=== PATIENT | female | born 1945 | race Caucasian/White ===

== ENCOUNTER 2019-02-17 08:21 | Inpatient (IN) | payer OTHER ==
[~2019-02-17] VITALS: Ht 165.1 cm; Wt 120.3 kg
[2019-02-17] MEDS ORDERED: KETOROLAC 15 MG/ML VIAL. IVP ONE (08:30)
--- NOTE | 2019-02-17 08:34 | PHYS DOC ---
Adult General Chief Complaint Chief Complaint: BACK PAIN - NO INJURY [facility] HPI Patient is a 73-year-old female who presents with complaint of left-sided lower back pain that radiates down her posterior left thigh that started yesterday at around noon. Patient rates her pain currently at a 9 out of 10. She denies any loss of bowel or bladder control but states that she is having a hard time holding her urine right now because she can't get up to go to the bathroom. She states that she has had no fever. She denies any chest pain or shortness of breath. She denies any abdominal pain, nausea or vomiting. Patient states that pain is worsened if she tries to move. She states that she has had similar episodes in the past due to sciatica and states that her last episode was about a year ago. Patient denies any recent injuries.[] Review of Systems Review of Systems Constitutional: Denies fever or chills [] Respiratory: Denies cough or shortness of breath [] Cardiovascular: No additional information not addressed in HPI [] Musculoskeletal: Complains of lower back pain [] Integument: Denies rash or skin lesions [] Neurologic: Denies headache, focal weakness or sensory changes [] Physical Exam Physical Exam Constitutional: Well developed, well nourished, no acute distress, non-toxic appearance. [] Neck: Normal range of motion, no tenderness, supple. [] Cardiovascular: Regular rate and rhythm[] Lungs & Thorax: Bilateral breath sounds clear to auscultation [] Skin: Warm, dry, no erythema, no rash. [] Back: There is tenderness to palpation in the lower lumbar paraspinal musculature on the left as well as in the left buttock. [] Extremities: No tenderness, no cyanosis, no clubbing, ROM intact. [] Neurologic: Alert and oriented X 3, no focal deficits noted. [] EKG EKG [] Radiology/Procedures Radiology/Procedures [] Course & Med Decision Making Course & Med Decision Making Pertinent Labs and Imaging studies reviewed. (See chart for details) Patient moved to room upon arrival and was evaluated by emergency rooms staff. Patient was given IV doses of fentanyl, Norflex, Decadron and Toradol. Patient was reevaluated at 9:30 AM and does report significant improvement in symptoms. Patient will be discharged home with prescriptions for further management of pain. Patient had been scheduled to return flight to [facility] today. Patient has required rescheduling a flight. For return flight, it would be medically recommended more comfortable seeding with ability to recline due to extended length of flight. Dragon Disclaimer Dragon Disclaimer This electronic medical record was generated, in whole or in part, using a voice recognition dictation system. Departure Departure: Impression: Primary Impression: Intractable low back pain Additional Impression: Sciatica Disposition: ADMITTED INPATIENT Admitting Physician: Leon Funez Condition: IMPROVED Referrals: PCP,NO (PCP) Problem Qualifiers Additional Impression: Sciatica Laterality: left Qualified Codes: M54.32 - Sciatica, left side CARLY GRIFFIN Jr. DO Feb 17, 2019 08:34
[2019-02-17] MEDS ORDERED: DEXAMETHASONE SOD PHOS 10 MG/ML VIAL IV ONE (08:45)
[2019-02-17] MEDS ORDERED: ORPHENADRINE CITRATE 60 MG/2 ML VIAL. IV ONE (08:45)
[2019-02-17] MEDS ORDERED: ONDANSETRON PF 4 MG/2 ML VIAL. IV PRN (10:00)
--- NOTE | 2019-02-17 10:42 | RAD ---
CT LUMBAR SPINE WO CONTRAST Indication: Intractable low back pain Exposure: One or more of the following individualized dose reduction techniques were utilized for this examination: 1. Automated exposure control 2. Adjustment of the mA and/or kV according to patient size 3. Use of iterative reconstruction technique. Technique: Standard imaging without intravenous contrast. Vertebral body height is intact. No evidence of acute fracture or aggressive bone destruction. No significant spondylolisthesis. Degenerative facet joint disease and mild degenerative spondylosis. Ligamentum flavum hypertrophy greatest at L3-L4 and L4-L5. Mild spinal canal narrowing at these levels. There appears to be some posterior disc protrusion or herniation at L5-S1, greater on the left which may be posteriorly displacing the left S1 nerve. There is also neural foraminal narrowing at the lower spine. Degenerative changes at the SI joint. Partially seen right hip replacement. No evidence of calculus or hydronephrosis in the visualized kidneys. Visualized aortoiliac structures are calcified and ectatic, without aneurysm. Low-density lesion in the right liver, measuring 18 mm diameter and 8 Hounsfield units, probably a cyst. Partially visualized tubing is seen in the pelvis. Partially visualized liver is enlarged. IMPRESSION: Degenerative lumbar spondylosis with stenosis. Disc protrusion at the lower levels, with suspected left S1 nerve impingement and displacement. Electronically signed by: Roly Shepherd MD (02/17/2019 10:39 AM) [facility]
[2019-02-17 11:13] VITALS: BP 143/76
--- NOTE | 2019-02-17 12:09 | NUR ---
The patient, VAN FOWLER, 73 y/o, F admitted by AKSHAT CERON MD, was given written information regarding hospital policies, unit procedures and contact persons. Valuables were checked and left with daughter Ana at bedside. Patient is alert and oriented x 4, speech is clear, primary language is Maya, able to speak liberian but has a hard time understanding Lithuanian. Daughter does interpret at times. Patient is full code, admitted for intractable back pain. Patient lungs are CTA, respirations are equal and unlabored, no cough or SOA observed, RA 02. Abdomen is obese,soft and non tender,active bowel sounds in all 4 quadrants. Continent of bowel and bladder, last BM 02-16-19. Patient currently has a boswell catheter in place due to patient unable to move from bed and retains urine. Clear yellow urine draining in bag, catheter placed in ED on 02-17-18. Skin is intact, normal for age and ethnicity. Left lower extremity is positive for jazz's sign, right lower extremity negative for Jazz's sign. HRR S1S2 auscultated with regular rhythm. Patient is a on ADA diet. Patient rates back pain on a scale of 1-10 a 6, refuse to elevate HOB above 15 degrees due to causing back spasms. Patient is resting in bed eating lunch with daughter at bedside.
[2019-02-17] MEDS ORDERED: [UNRECOGNIZED DRUG - MIXTURE] PO (12:38)
[2019-02-17] MEDS ORDERED: METF1000 PO (12:38)
[2019-02-17] MEDS ORDERED: LEVO50TA78 PO (12:38)
[2019-02-17] MEDS ORDERED: [UNRECOGNIZED DRUG - OTHER] (12:38)
[2019-02-17] MEDS ORDERED: [UNRECOGNIZED DRUG - OTHER] PO (12:38)
[2019-02-17] MEDS ORDERED: [UNRECOGNIZED DRUG - OTHER] (12:38)
[2019-02-17] MEDS ORDERED: [UNRECOGNIZED DRUG - OTHER] PO (12:38)
[2019-02-17] MEDS ORDERED: [UNRECOGNIZED DRUG - OTHER] PO (12:38)
[2019-02-17] MEDS ORDERED: CANA100T PO (12:38)
[2019-02-17] MEDS ORDERED: [UNRECOGNIZED DRUG - OTHER] PO (12:38)
[2019-02-17] MEDS ORDERED: MULT-245 PO (12:38)
[2019-02-17] MEDS ORDERED: ACEB200C PO (12:38)
[2019-02-17 13:03] LABS: BASO # 0.1 x10^3/uL (0.0-0.2); BASO % 1 % (0-3); EOS % 0 % (0-3); HEMATOCRIT 47.5 % (36.0-47.0); HEMOGLOBIN 15.8 g/dL (12.0-15.5); LYMPH # 0.7 x10^3/uL (1.0-4.8); LYMPH % 9 % (24-48); MEAN CORPUSCULAR HEMOGLOBIN 31 pg (25-35); MEAN CORPUSCULAR HGB CONC 33 g/dL (31-37); MEAN CORPUSCULAR VOLUME 92 fL (79-100); MONO # 0.1 x10^3/uL (0.0-1.1); MONO % 1 % (0-9); NEUT # 6.9 x10^3uL (1.8-7.7); NEUT % 89 % (31-73); PLATELET COUNT 153 x10^3/uL (140-400); RED BLOOD COUNT 5.15 x10^6/uL (3.50-5.40); RED CELL DISTRIBUTION WIDTH 14.2 % (11.5-14.5); WHITE BLOOD COUNT 7.7 x10^3/uL (4.0-11.0)
[2019-02-17 13:10] LABS: CALCIUM 9.2 mg/dL (8.5-10.1); CREATININE 0.8 mg/dL (0.6-1.0); GFR 70.7; POTASSIUM 3.6 mmol/L (3.5-5.1)
[2019-02-17] MEDS ORDERED: IBUPROFEN 600 MG TABLET. PO PRN (14:30)
[2019-02-17] MEDS ORDERED: predniSONE 20 MG TABLET PO ONE (14:45)
[2019-02-17 14:54] VITALS: BP 146/73
--- NOTE | 2019-02-17 16:55 | HP ---
ADMIT DATE: 02/17/2019 HISTORY OF PRESENT ILLNESS: The patient is a 73-year-old female patient, visiting her daughter from [place] who presented with a complaint of left-sided lower back pain that radiates down to her posterior left thigh and started yesterday around noon. The patient rates her pain now currently at 9/10 on arrival to the Emergency Room. Denied any loss of bowel or bladder control, but stated that she is having a hard time holding her urine right now because she cannot get up to go to the bathroom. She stated that she has no fever. Denied any chest pain or shortness of breath. Denied any abdominal pain, nausea, or vomiting. Stated the pain is worsened if she tries to move. She had had similar episode in the past due to sciatica and stated that her episode was about a year ago. The patient denies any recent fall or trauma. She was extensively investigated in the Emergency Room. Her lab works are unremarkable and has had a CT scan of the lumbar spine, which basically showed that the vertebral body heights are intact. No evidence of acute fracture or aggressive bone destruction, no significant spondylolisthesis. She has degenerative facet joint disease and mild degenerative spondylosis, ligamentum flavum hypertrophy, greatest at L3-L4 and L4-L5, mild spinal canal narrowing at these levels. There appears to be some posterior disk protrusion or herniation at L5-S1, greater on the left, for which may be posteriorly displacing the left S1 nerve. There is also neural foramina narrowing at the lower spine, degenerative changes at S1 joint, partially seen right hip replacement. No evidence of calculus or hydronephrosis in the visualized kidneys. The visualized aorta and iliac structures calcified and ectatic without aneurysm, low-density lesion in the right liver, measuring 18 mm in diameter and 8 Hounsfield units, probably a cyst, partially visualized. Tubing is seen in the pelvis, partially visualized liver is enlarged with the impression is that the patient has degenerative lumbar spondylosis with stenosis, disk protrusion at the lower level with suspected left S1 nerve impingement and displacement. The patient was treated with Toradol, fentanyl, as well as dexamethasone and orphenadrine and was admitted for further pain management and to start the process of physical and occupational therapy. PAST MEDICAL HISTORY: Significant for type 2 diabetes mellitus, hypertension, hypothyroidism, hyperlipidemia, and generalized osteoarthritis. 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 PAST SURGICAL HISTORY: Significant for right total hip arthroplasty, tonsillectomy, and appendectomy. ALLERGIES: She is allergic to HAZELNUT, NOVOCAIN, and CLINDAMYCIN. MEDICATIONS: She is currently on following medications: She is on acebutolol 100 mg once a day, metformin 1000 mg once a day, Invokana 100 mg tablet once a day, levothyroxine sodium 50 mcg once a day, multivitamin 1 tablet once a day, Detralex 200 mg once a day for chronic venous, Kalium Chloratum, Lercanidipine 10 mg twice a day, nimesulide once a day, Prestarium Combi 100 mg daily. FAMILY HISTORY: She has 3 brothers, all . One at age of 4 because of diphtheria, two because of renal cell carcinoma. Her father at age of 64 because of myocardial infarction. Mother at age of 55 because of leukemia. SOCIAL HISTORY: She lives alone. She has 2 daughters, one lives in another state, the other one works for the [employer]. She has never smoked, does not drink alcohol or use any recreational drugs. She works as a psychotherapist. REVIEW OF SYSTEMS: As per history of present illness. PHYSICAL EXAMINATION: GENERAL: On arrival to the Emergency Room, the patient looked well and was clearly in no apparent respiratory distress. No pallor, jaundice, cyanosis, or thyromegaly. No jugular venous distention. No limb edema. VITAL SIGNS: Her heart rate was 65, blood pressure 150/75, temperature was 98, respiratory rate was 16, and oxygen saturation was 98%. HEAD, EYES, EARS, NOSE, AND THROAT: Normocephalic, atraumatic. NECK: Supple. HEART: Showed normal first and second heart sounds. No gallop or murmur. CHEST: Clear to auscultation. No crepitation or rhonchi. ABDOMEN: Distended, soft, nontender. No guarding or rigidity. No organomegaly. All hernial orifice intact. Bowel sounds normal. NEUROLOGIC: She is awake, alert, responding appropriately. All cranial nerves intact. She moves her extremities without difficulty. Apparently, when she arrived to the Emergency Room, she was unable to move and required placement of an indwelling Renee catheter. LABORATORY DATA: Her lab work showed a serum sodium 137, potassium 3.6, chloride 100, bicarbonate 27, anion gap of 10, BUN 18, creatinine 0.8, estimated GFR was 70 mL per minute. Her glucose 197, calcium was 9.2. White cell count was 7700, hemoglobin 16, hematocrit 48, MCV 92, and platelet count of 153,000. The lumbar spine CT showed that the patient has degenerative lumbar spondylosis with stenosis, disk protrusion at the lower level with suspected left S1 nerve impingement and displacement. PLAN: Plan is to continue with pain management. Continue with steroids as well as the anti-inflammatory medication, muscle relaxant, and pain medication. AKSHAT CERON MD DR: CORBY/bishop JOB#: [id number] / [id number]
[2019-02-17 19:35] VITALS: BP 155/77
[2019-02-17] MEDS: BACLOFEN 10 MG TABLET PO SCH (20:42)
[2019-02-17 22:54] VITALS: BP 140/70
[2019-02-18] MEDS: LEVOTHYROXINE 50 MCG TABLET PO SCH ×2 (05:44→07:56)
[2019-02-18 06:07] VITALS: BP 149/74
[2019-02-18 07:31] LABS: CALCIUM 8.8 mg/dL (8.5-10.1); CREATININE 0.8 mg/dL (0.6-1.0); GFR 70.7
[2019-02-18] MEDS: metFORMIN 500 MG TABLET PO SCH (07:55)
[2019-02-18] MEDS: BACLOFEN 10 MG TABLET PO SCH ×3 (07:56→21:38)
[2019-02-18] MEDS: MULTIVITAMIN with MINERAL TABLET. PO SCH (07:56)
[2019-02-18 08:05] LABS: POTASSIUM 3.5 mmol/L (3.5-5.1)
[2019-02-18] MEDS ORDERED: NON FORMULARY ITEM (Canagliflozin (Invokana) 1 TAB) PO SCH (09:00)
[2019-02-18 11:02] VITALS: BP 124/75
[2019-02-18 14:59] VITALS: BP 126/72
[2019-02-18] MEDS ORDERED: METO25TA4 PO (17:08)
[2019-02-18] MEDS ORDERED: LEVO50TA5 PO (17:08)
[2019-02-18] MEDS ORDERED: LISI10TA2 PO (17:08)
[2019-02-18] MEDS ORDERED: POTA20TA4 PO (17:08)
[2019-02-18] MEDS ORDERED: predniSONE 10 MG TABLET PO ONE (17:30)
[2019-02-18 19:37] VITALS: BP 164/93
[2019-02-18] MEDS: METOPROLOL TART IMMED RELEASE 25 MG TABLET PO SCH (21:00)
[2019-02-18 22:18] VITALS: BP 168/93
--- NOTE | 2019-02-18 23:21 | PN ---
DATE: 02/18/2019 SUBJECTIVE: The patient is sitting in her chair, eating her dinner comfortably, in no apparent distress. Unfortunately, now she cannot lie, although she is able to stand and walk. She is planning to fly back home to [facility], but she continued to have severe pain. PHYSICAL EXAMINATION: GENERAL: When I saw her this afternoon, she looked well and was clearly in no apparent respiratory distress. VITAL SIGNS: Her heart rate was 56, blood pressure 126/72, temperature 97.7, respiratory rate 20, and oxygen saturation was 94%. The rest of clinical exam is stable. Her intake and output are incompletely recorded. LABORATORY DATA: Her lab work this morning showed a serum sodium of 139, potassium 3.5, chloride 102, bicarbonate 28, anion gap of 9, BUN 23, creatinine 0.8. Her white cell count was 7700, hemoglobin 16, hematocrit 48, MCV 92, and platelet count of 153,000. ASSESSMENT: This is a 73-year-old female patient, visiting from [facility], who came with left-sided lower back pain. CT scan showed that she has degenerative lumbar spondylosis with stenosis, disk protrusion at the lower level with suspected left S1 nerve impingement and displacement consistent with her symptoms. PLAN: My plan is to continue with pain medication. Continue with nonsteroidal anti-inflammatory medication. Continue with baclofen, ibuprofen as well as steroids and I will evaluate her again tomorrow to see whether she is able to negotiate stairs and hopefully she can be discharged to fly back to [facility] in the near future. AKSHAT CERON MD DR: CORBY/bishop JOB#: [id number] / [id number]
[2019-02-19 05:19] VITALS: BP 148/69
[2019-02-19] MEDS: LEVOTHYROXINE 50 MCG TABLET PO SCH (06:08)
[2019-02-19] MEDS: MULTIVITAMIN with MINERAL TABLET. PO SCH (08:25)
[2019-02-19] MEDS: METOPROLOL TART IMMED RELEASE 25 MG TABLET PO SCH ×2 (08:26→21:00)
[2019-02-19] MEDS: metFORMIN 500 MG TABLET PO SCH (08:26)
[2019-02-19] MEDS: BACLOFEN 10 MG TABLET PO SCH ×3 (08:26→21:39)
[2019-02-19] MEDS ORDERED: POTASSIUM CHLORIDE 20 MEQ TABLET.ER. PO SCH (09:00)
[2019-02-19] MEDS ORDERED: LISINOPRIL 10 MG TABLET PO SCH (09:00)
[2019-02-19 10:47] VITALS: BP 154/76
--- NOTE | 2019-02-19 13:34 | NUR ---
NURSING NOTES: PATIENT IS ALERT AND ORIENTED. SPEECH IS CLEAR, NO C/O PAIN NOTED THUS FAR THIS SHIFT. NO SOA OR COUGH NOTED. NO C/O GI SX. DR. CERON HERE TO SEE PATIENT TODAY. PLAN IS FOR PATIENT TO DISCHARGE TOMORROW MORNING TO MAKE FLIGHT BACK HOME TO [facility].
[2019-02-19 14:51] VITALS: BP 117/67
--- NOTE | 2019-02-19 16:42 | PN ---
DATE: 02/19/2019 SUBJECTIVE: The patient is sitting on the edge of the bed comfortably in no apparent distress. The pain has been slightly better controlled. She is now able to stand and lie in bed, has been walking with a walker multiple times and the plan is for her to stay overnight here again and to depart from the hospital straight to the airport as they has a flight to go back to [facility] around 10:00 tomorrow. PHYSICAL EXAMINATION: GENERAL: When I examined her, she looked well and was clearly in no apparent respiratory distress. No pallor, jaundice, cyanosis or thyromegaly. No jugular venous distention. No limb edema. VITAL SIGNS: Her heart rate was 72, blood pressure 154/76, temperature 97.5, respiratory rate 20, and oxygen saturation was 94%. HEAD, EYES, EARS, NOSE AND THROAT: Normocephalic, atraumatic. NECK: Supple. CARDIAC: Normal first and second heart sounds. No gallop or murmur. CHEST: Clear to auscultation. No crepitation or rhonchi. ABDOMEN: Distended, soft, nontender. NEUROLOGIC: She is definitely awake, alert, responding appropriately. All cranial nerves are intact. She ambulates with a walker. Her intake was 3390, output was 2900. LABORATORY DATA: As of yesterday showed a serum sodium 139, potassium 3.5, chloride 102, bicarbonate 28, anion gap of 9, BUN 23, creatinine 0.8, estimated GFR was 70 mL per minute, glucose 162, calcium was 8.8. Her white cell count was 7500, hemoglobin 16, hematocrit 48, MCV 92, and platelet count 253,000. ASSESSMENT: 1. Severe left-sided back pain radiating to the left leg caused by left S1 nerve impingement and displacement consistent with her symptoms. The patient has multiple other medical problems including: A. Type 2 diabetes mellitus. B. Hypertension. C. Hypothyroidism. D. Hyperlipidemia. E. Generalized osteoarthritis. F. Hematuria due to some form of glomerulonephritis. PLAN: To basically continue with all her current medication. The patient will be discharged tomorrow morning at 7:00 to depart from here to the airport. She has a flight to go to [facility] tomorrow around 10:00. We will give her a prescription for all her medications and perhaps eventually needs surgical intervention at [facility]. AKSHAT CERON MD DR: Tiffanie JOB#: [id number] / [id number]
[2019-02-19 19:31] VITALS: BP 142/85
[2019-02-19 22:48] VITALS: BP 139/69
[2019-02-20 05:31] VITALS: BP 165/85
[2019-02-20] MEDS: LEVOTHYROXINE 50 MCG TABLET PO SCH (05:52)
--- NOTE | 2019-02-20 06:29 | NUR ---
Pt rested off and on through the night between requesting doses of pain medication. Pt concerned about medications for the trip home. Assured pt we would discuss with the plan that would be safest for her but still keep her comfortable. Will continue to monitor.
[2019-02-20] MEDS: BACLOFEN 10 MG TABLET PO SCH (07:07)
--- NOTE | 2019-02-20 07:27 | NUR ---
Patient is d/c home with self care. Patient is stable at time of admission. Patients IV id D/C'd and patient takes all belongings with self at time of discharge. Patient is given all discharge and follow up instructions. Patient is w/c off unit accompanied by staff.
== END 2019-02-20 07:20 | disposition home or self-care (01) | DRG 552 ==
LOC: ER 08:21 → 1 SOUTH 10:32
PROVIDERS: ADMIT Internal Medicine; ATTEND Internal Medicine
DX: M47.816 Spondylosis without myelopathy or radiculopathy, lumbar region (principal); M48.061 Spinal stenosis, lumbar region without neurogenic claudication; M54.30 Sciatica, unspecified side; E11.9 Type 2 diabetes mellitus without complications; I10 Essential (primary) hypertension; E03.9 Hypothyroidism, unspecified; E78.5 Hyperlipidemia, unspecified; M15.9 Polyosteoarthritis, unspecified; Z96.641 Presence of right artificial hip joint; Z82.49 Family history of ischemic heart disease and other diseases of the circulatory system; Z80.6 Family history of leukemia; Z80.51 Family history of malignant neoplasm of kidney; Z88.8 Allergy status to other drugs, medicaments and biological substances; N05.9 Unspecified nephritic syndrome with unspecified morphologic changes
CPT/HCPCS: 36415; 72131; 80048; 85025; 96374; 96375; J1100; J1885; J2360; J3010; J7512; 97110; 97116; 97535; 99285-25